=== PATIENT | male | born 1950 | race Caucasian/White ===

== ENCOUNTER 2024-11-06 20:10 | Emergency (ER) | payer MEDICARE, OTHER, SELFPAY ==
[2024-11-06 20:27] LABS: Hematocrit 39.7 % (39.0-52.0); Hemoglobin 13.9 g/dL (13.0-18.0); Mean Corp Hgb Conc. 35.0 g/dL (33.0-37.0); Mean Corpuscular Volume 85.7 fL (80.0-94.0); Nucleated Red Blood Cells % 0 % (-); Platelet Count 183 10^3/uL (130-400); Red Cell Dist. Width 13.4 % (11.5-14.5)
[2024-11-06 20:52] LABS: Troponin I < 0.012 ng/ml
[2024-11-06 20:54] LABS: ALT (SGPT) 22 U/L (0-50); AST (SGOT) 24 U/L (17-59); Albumin 4.5 g/dl (3.5-5.0); Alkaline Phosphatase 108 U/L (38-126); Blood Urea Nitrogen 24 mg/dl (9-20); Calcium 9.8 mg/dl (8.4-10.2); Carbon Dioxide 29 mmol/L (22-30); Chloride 106 mmol/L (98-107); Glucose 120 mg/dl (70-99); Potassium 4.5 mmol/L (3.5-5.1); Sodium 141 mmol/L (135-145); Total Protein 7.2 g/dl (6.3-8.2); eGFR > 60.00
[2024-11-06 23:38] VITALS: BP 150/82
--- NOTE | 2024-11-07 00:04 | ED.GENMED ---
History of Present Illness
General
Chief Complaint: Heart Rate Problem
Source: patient
Exam Limitations: none
Time Seen by Provider: 11/06/24 23:51
History of Present Illness
History of Present Illness:
See MDM
Past History
Past History
ED Past Medical History: HTN
ED Past Surgical History: Orthopedic
Social History
Alcohol: Occasional
Phy Exam
Physical Exam
Physical Exam:
See MDM
Course
Orders/Labs/Results
Orders:
Orders
11/06/24 20:18
Electrocardiogram (*1) Routine
Reason for Study: Tachycardia
Cardiac Monitoring- Treatment ONCE
O2 Therapy [RESP] Urgent
Titrate/Wean O2 to maintain O2 sat greater than (%): 90
Special Instructions: Maintain sats >/=90%
Pulse Ox/spot Check [RESP] Urgent
Quantity: 1
Special Instructions: ON ROOM AIR
11/06/24 20:22
Complete Blood Count/With Diff Urgent
Comprehensive Metabolic Panel Urgent
Troponin I Urgent
Abnormal Lab Results
11/06/24
20:22
RBC 4.63 L 10^6/uL
(4.70-6.10)
Absolute Neuts (auto) 6.8 H 10^3/uL
(1.4-6.5)
Neutrophils % 76.2 H %
(42.2-75.2)
Lymphocytes % 15.3 L %
(20.5-51.1)
BUN 24 H mg/dl
(9-20)
Glucose 120 H mg/dl
(70-99)
Total Bilirubin 1.6 H mg/dl
(0.2-1.3)
11/06/24 20:22
11/06/24 20:22
Vital Signs
Initial and Last Documented VS:
Initial Vital Signs
Temp Pulse Resp Pulse Ox
98.8 F 118 18 98
11/06/24 20:13 11/06/24 20:13 11/06/24 20:13 11/06/24 20:13
Last Documented Vital Signs
Temp Pulse Resp BP Pulse Ox
98.8 F 99 19 150/82 98
11/06/24 20:13 11/06/24 23:39 11/06/24 23:39 11/06/24 23:38 11/06/24 20:13
MDM/Problems Addressed
Differential Diagnosis Includes:
HPI and MDM Narrative:
74-year-old male presenting for evaluation of asymptomatic tachycardia. Patient was outside in the heat enjoying pizza and scotch with his friends. He got an alert from his Apple Watch that he has been in sinus tachycardia for about 20 minutes.
Patient blamed the heat so he went inside in the air conditioning. On arrival to the emergency department, symptoms started to improve and he noted that his heart rate was in the 90s. EKG shows sinus tachycardia. When I evaluated the patient, his
heart rate was down in the 90s. Patient does acknowledge that he just wanted an EKG to rule out any concern for heart attack. He denies chest pain or shortness of breath.
We did discuss the possibility of undiagnosed A-fib. He has never followed up with carpenter rough in the past we discussed the negative workup from the emergency department. We discussed that thyroid function was not performed and he should talk to
his doctor about obtaining the rest workup. Patient states he will follow-up with cardiology. We discussed stress, echo and Holter monitor
Physical exam
General: Well appearing and non-toxic
HEENT: protecting airway
Neck: appears supple
CV: No evidence of cyanosis. Regular rate and rhythm
Resp: No accessory muscle use
Abd: Non-distended
Extremities: No deformities. No leg edema
Neuro: alert
Psych: Normal affect
Skin: Intact
Problems Addressed including Acute and Chronic Conditions affecting care:
1. Tachycardia
Acuity: acute
Prognosis: stable
Details: Discussed the possibility of undiagnosed A-fib. Discussed outpatient follow-up. Patient remains symptom-free
Differential Diagnosis (but not limited to): A-fib, sinus tachycardia, dehydration
Testing considered: TSH
Drug therapy (if applicable): OTC meds, please see d/c instruction regarding Rx drugs
Amount and/or Complexity of Data Reviewed
Clinical info obtained from: Patient
External data reviewed: N/A
Labs I independently reviewed (but not limited to): Troponin normal
Radiology: N/A
Pulse Ox: not hypoxic
EKG independently reviewed: Sinus tachycardia, normal axis, no STEMI
Psychology Tech: N/A
Critical Care: N/A
Risk of Complication:
Social Determinants of health: Good social support
Discussed with other providers: N/A
Escalation of Care includes Admit/Obs: After being observed in the Emergency Department, pt stable for discharge.
Occasional wrong word or 'sound a like' substitutions may have occurred due to the inherent limitations of voice recognition software. Read the chart carefully and recognize, using context, where substitutions have occurred.
*Pulse Oximetry
SaO2: 98
Oxygen Mode of Delivery: Room air
Patient hypoxic: no
*Critical Care Note
Total Time (30-74mins, 75-104mins- exclusive of procedures): Not Applicable
ED Attending Note
-
Portions of this chart may have been created with voice recognition software.� Occasional wrong word or��sound alike� substitutions may have occurred due to the inherent limitations of voice recognition software.
Discharge Plan
Departure
Patient Disposition: Home (Routine Discharge)
Date of Disposition: 11/07/24
Time of Disposition: 00:04
Patient with high blood pressure during this ER visit?: Yes
Discharge Problem:
Atrial tachycardia
Instructions: Sinus Tachycardia (DC)
Referrals:
Daisy Willoughby MD [Active, Cardiology]
Activity Restrictions/Additional Instructions:
Please return for any worsening symptoms.
You may return at any time if you have further concerns.
Please follow up with your doctor at the first available appointment, preferably this week.
Please make an appointment to see the carpenter rough.
Thank you for choosing [facility].
Interventions
Interventions:
*Risk Screen - Suicide Last Done: 11/06/24 20:13
*General Assessment Last Done: 11/06/24 20:17
Discharge Date and Time
Print Language: FRENCH
[2024-11-07 00:16] VITALS: BP 119/80
== END 2024-11-07 00:29 | disposition home or self-care (01) ==
LOC: EMR 20:10
PROVIDERS: EMERGENCY PHYSICIAN Student in an Organized Health Care Education/Training Program
DX: I47.19 Other supraventricular tachycardia (principal); I10 Essential (primary) hypertension
CPT/HCPCS: 99283; 80053; 84484; 85025; 93005